=== PATIENT | female | born 1985 | race Two or more races ===

== ENCOUNTER 2024-03-03 21:47 | Emergency (ER) | payer MEDICAID, SELFPAY ==
[2024-03-03 21:48] VITALS: BMI 37.8
[2024-03-03 22:04] VITALS: BP 120/82; PULSE 89; RESP 18; TEMP 36.6; O2SAT 94
--- NOTE | 2024-03-03 22:22 | PD.EDRME ---
Rapid Medical Screening Exam RME Arrival date/time: 03/03/24 21:47 38-year-old female presents emergency department complaining of cough, difficulty breathing, headache, and bodyaches for 5 days. Chief Complaint: Flu Like Symptoms Time Seen by Provider: 03/03/24 22:07 Vital signs: Vital Signs Temperature 98 F 03/03/24 22:04 Pulse Rate 89 03/03/24 22:04 Respiratory Rate 18 03/03/24 22:04 Blood Pressure 120/82 03/03/24 22:04 Pulse Oximetry (%) 94 L 03/03/24 22:04 Oxygen Delivery Method Room Air 03/03/24 22:04 Vital signs reviewed by provider: Yes
--- NOTE | 2024-03-03 22:30 | PC.NURSE ---
RT called for breathing tx.
[2024-03-03 22:34] VITALS: PULSE 89
[2024-03-03] MEDS: SODIUM CHLORIDE RT SOL 0.9% 3 ML NEBU INH (22:34)
[2024-03-03] MEDS: IPRATROPIUM RT 0.5 MG/ 2.5 ML NEBU INH (22:34)
[2024-03-03] MEDS: ALBUTEROL RT 2.5 MG/0.5 ML NEBU 5 MG INH (22:34)
[2024-03-03 22:36] VITALS: PULSE 96; RESP 18; O2SAT 96
[2024-03-03] MEDS: predniSONE 20 MG TABLET 60 MG PO (23:08)
--- NOTE | 2024-03-04 00:05 | PD.EDURI ---
Upper Respiratory Inf. RME/HPI General Chief Complaint: Flu Like Symptoms Stated Complaint: cough, wheezing, chest pain Time Seen by Provider: 03/03/24 22:07 Source: patient Arrival date/time: 03/03/24 21:47 38-year-old female presents emergency department complaining of cough, difficulty breathing, headache, and bodyaches for 5 days. Patient denies any other associated symptoms. Mode of arrival: ambulatory Limitations: no limitations RME / HPI RME / HPI Narrative: 03/03/24 21:47 38-year-old female presents emergency department complaining of cough, difficulty breathing, headache, and bodyaches for 5 days. Related Data Previous Rx's ?Medication ?Instructions ?Recorded acetaminophen 650 mg 650 mg PO Q8H PRN fever or pain 11/11/18 tablet,extended release #30 tabs cyclobenzaprine 10 mg tablet 10 mg PO Q8H PRN muscle spasm / 11/11/18 pain #14 tabs meloxicam 15 mg tablet (Mobic) 15 mg PO QDAY #10 tabs 11/11/18 acetaminophen 500 mg capsule 500 mg PO Q6H PRN pain #30 caps 03/04/24 albuterol sulfate 90 mcg/actuation 2 puff inhalation Q6H PRN 03/04/24 aerosol inhaler (Ventolin HFA) shortness of breath or wheezing #6.7 grams benzonatate 100 mg capsule 100 mg PO BID #20 caps 03/04/24 Allergies Allergy/AdvReac Type Severity Reaction Status Date / Time codeine Allergy Unknown Verified 08/24/21 04:33 Review of Systems Review of Systems Systems Reviewed: All systems reviewed, normal except as documented Constitutional Constitutional: Reports body ache(s) and Reports headache(s) Eyes Eyes: Reports system reviewed and no additional complaints, except as documented and Denies change in vision ENT Ears, Nose, Mouth, and Throat: Reports headache(s) Cardiovascular Cardiovascular: Reports dyspnea Respiratory Respiratory: Reports cough and Reports dyspnea Gastrointestinal Gastrointestinal: Reports system reviewed and no additional complaints, except as documented, Denies abdominal pain, Denies nausea and Denies vomiting Musculoskeletal Musculoskeletal: Reports system reviewed and no additional complaints, except as documented, Denies abnormal gait and Denies arthralgias Integumentary/Breasts Skin/Breast: Reports system reviewed and no additional complaints, except as documented, Denies erythema, Denies rash and Denies wounds Neurologic Neurologic: Denies abnormal gait and Reports headache(s) Past Medical History Past Medical History NEUROLOGIC: Negative Neurological Disorders CARDIAC: Negative Cardiac Disorders or Congestive Heart Failure RESPIRATORY: Negative Chronic Obstructive Pulmonary Disease (COPD) GASTROINTESTINAL: Negative Gastrointestinal Disorders, Hepatitis or Colorectal Cancer GENITOURINARY: Negative Genitourinary Disorders, Renal Disease or Prostate Cancer REPRODUCTIVE: Negative Breast Cancer or Testicular Cancer MUSCULOSKELETAL: Negative Musculoskeletal Disorders or Bone Cancer ENDOCRINE: Negative Endocrine Disorders, Diabetes Mellitus Type 1 or Diabetes Mellitus Type 2 HEMATOLOGIC: Negative Blood Disorders OTHER HISTORY: Positive Chicken Pox (10 year old); Negative Autoimmune Disease, Blood Transfusions, MRSA, VRSA, Human Immunodeficiency Virus (HIV), Measles, Mumps, Rubella (Lao Measles), Pertussis, Clostridium Difficile, Breast Cancer, Cervical Cancer, Colorectal Cancer, Lung Cancer, Ovarian Cancer, Prostate Cancer or Testicular Cancer Family History FAMILY HISTORY: Positive Family Cardiac Disorders (father murmur -heart surgery) and Family Surgery (heart surgery); Negative Family Psychiatric Problems, Family Respiratory Disorders, Family Gastrointestinal Problems, Family Cancer or Family Anesthesia Reaction Surgical History SURGICAL: Negative Section Social History SMOKING STATUS: Former smoker SECOND HAND EXPOSURE: No ED Exam General Limitations: Present no limitations General appearance: Present alert and in no apparent distress Head Head exam: Present atraumatic Eye Eye exam: Present normal appearance, PERRL and EOMI ENT ENT exam: Present normal exam, normal oropharynx and mucous membranes moist Neck Neck exam: Present normal inspection, full ROM and trachea midline Chest Chest inspection: Present normal inspection and symmetric chest wall rise Respiratory Respiratory exam: Present normal lung sounds bilaterally and wheezes Cardiovascular Cardiovascular exam: Present regular rate, normal rhythm and normal heart sounds Abdominal Exam Abdominal exam: Present soft and normal bowel sounds Extremities Exam Extremities exam: Present normal inspection and full ROM Back Exam Back exam: Present normal inspection and full ROM Neurological Exam Neurological exam: Present alert, oriented X3 and CN II-XII intact Psychiatric Psychiatric exam: Present normal affect and normal mood Skin Skin exam: Present warm, dry, intact and normal color Course Quality Measures none Orders Category Date Time Status Bedside COVID-19 Antigen Test NOW Care 03/03/24 22:21 Completed Bedside Influenza A&B Antigen Test NOW Care 03/03/24 22:22 Completed ALBUTEROL RT 0.5ml [Proventil Rt 0.5ml] Med 03/03/24 22:21 Discontinued 5 mg INH X1 ONE Ipratropium Jackson Rt Kassie [Atrovent Rt Kassie] Med 03/03/24 22:21 Discontinued 0.5 mg INH X1 ONE Sodium Chloride Rt Kassie 0.9% [NS Rt Kassie 0.9%] Med 03/03/24 22:21 Discontinued 3 ml INH PRN PRN predniSONE Med 03/03/24 22:21 Discontinued 60 mg PO X1 ONE Vital Signs Vital signs: Vital Signs Temperature 98 F 03/03/24 22:04 Pulse Rate 89 03/03/24 22:04 Respiratory Rate 18 03/03/24 22:04 Blood Pressure 120/82 03/03/24 22:04 Pulse Oximetry (%) 94 L 03/03/24 22:04 Oxygen Delivery Method Room Air 03/03/24 22:04 94% room air with normal limits Upper Respiratory Infection MDM Narrative MDM Narrative:: 38-year-old female presents emergency department complaining of cough, difficulty breathing, headache, and bodyaches for 5 days. Patient denies any other associated symptoms. Left upper lobe expiratory wheeze on auscultation that significantly improved after steroids and breathing treatment. Patient reported significant improvement after breathing treatment and steroids speaking in full sentences and does not appear to be any acute respiratory distress. Influenza positive. Patient appears nontoxic and is hemodynamic stable. Patient data External records reviewed:: [facility] previous records Clinical information provided by:: patient Social determinants that could affect healthcare access:: none Patient has the following chronic illnesses:: See chart How is presenting disease/condition affected by chronic disease/condition?: uneffected by Evaluation data The following diagnostics were reviewed and interpreted by me:: lab results Lab and/or radiology exams considered but not ordered:: Ordered Interpretation Summary: Interpreted by me Medications / Prescriptions Medications or Prescriptions considered but not ordered:: Ordered Medication administrations:: Medication Administration History Discontinued Medications Albuterol (Albuterol Rt 2.5 Mg/0.5 Ml Nebu) 5 mg INH X1 ONE Stop: 03/03/24 22:22 Last Admin: 03/03/24 22:34 Dose: 5 mg Documented By: FABRICE Ipratropium Jackson (Ipratropium Rt 0.5 Mg/ 2.5 Ml Nebu) 0.5 mg INH X1 ONE Stop: 03/03/24 22:22 Last Admin: 03/03/24 22:34 Dose: 0.5 mg Documented By: FABRICE Prednisone (Prednisone 20 Mg Tablet) 60 mg PO X1 ONE Stop: 03/03/24 22:22 Last Admin: 03/03/24 23:08 Dose: 60 mg Documented By: JOSSELIN Sodium Chloride (Sodium Chloride Rt Kassie 0.9% 3 Ml Nebu) 3 ml INH PRN PRN PRN Reason: SOLN Stop: 04/02/24 22:20 Last Admin: 03/03/24 22:34 Dose: 3 ml Documented By: FABRICE Given Consultations Consultation(s) initiated? (list below): No Diagnosis Upper Respiratory Differential Diagnosis: upper respiratory infection, otitis media, sinusitis, viral infection, bronchitis, influenza and pharyngitis Most likely diagnosis given after review of the tests above:: Influenza Admission Indicated Admission indicated?: not indicated Admission Request Was there a request for admission?: No Disposition Plan Disposition Plan: Discharge Discharge Attestation Discharge Attestation: The patient and all family members were given an opportunity to ask questions and understood the discharge instructions. Discharge instructions specifically effects, indications for sooner follow up or return to the emergency department, and the expected course of current diagnosis. Patient condition: Stable Discharge Plan Plan Patient Disposition: HOME (Self Care) Disposition Comment: Stable Prescriptions/Referrals Prescriptions/Med Rec: New albuterol sulfate [Ventolin HFA] 90 mcg/actuation HFA aerosol inhaler 2 puff inhalation Q6H PRN (Reason: shortness of breath or wheezing) Qty: 6.7 0RF acetaminophen 500 mg capsule 500 mg PO Q6H PRN (Reason: pain) Qty: 30 0RF benzonatate 100 mg capsule 100 mg PO BID Qty: 20 0RF No Action acetaminophen 650 mg tablet extended release 650 mg PO Q8H PRN (Reason: fever or pain) Qty: 30 0RF Rx Instructions: swallow whole; do not crush, chew, break, dissolve, cut, or open cyclobenzaprine 10 mg tablet 10 mg PO Q8H PRN (Reason: muscle spasm / pain) Qty: 14 0RF meloxicam [Mobic] 15 mg tablet 15 mg PO QDAY Qty: 10 0RF Problem List Clinical Impression: Influenza Patient/Caregiver Discharge Instructions Additional Instructions: Drink plenty of fluids and get plenty of rest. Take Tylenol or ibuprofen as needed for fever or pain. Use albuterol inhaler as needed for any shortness of breath or wheezing. Follow-up with primary care provider in 2 to 3 days. Return to emergency department for any worsening symptoms or as needed. Print Language: Chinese Stand Alone Forms: Brittany Award Info., Work/School Release, Patient Portal Info Letter PA/[employer]PER[employer] Supervising Physician PA/[employer] SUPER[employer] Supervising Physician: Dr. Jennings
== END 2024-03-04 01:15 | disposition home or self-care (01) ==
LOC: SERX 03-04 00:35
PROVIDERS: Emergency Provider Emergency Medicine
DX: J11.1 Influenza due to unidentified influenza virus with other respiratory manifestations (principal)
CPT/HCPCS: 87400; 87811; 94640; 99283; J7512

== ENCOUNTER 2025-01-26 08:17 | Emergency (ER) | payer MEDICAID, SELFPAY ==
[2025-01-26 08:30] VITALS: BP 127/66; PULSE 65; RESP 19; TEMP 36.8; O2SAT 97
[2025-01-26 08:33] VITALS: BMI 37.8
--- NOTE | 2025-01-26 08:55 | EKG_ITS ---
[facility] Test Date: 2025-01-26 Pat Name: ADOLFO MORRIS Department: Room: - Gender: Female Religion Instructor: : 1985 Requested By: Zaheer Pate Order Number: [id number] Reading MD: Zaheer Pate Measurements Intervals [place] Rate: 56 P: 61 WI: 178 QRS: 28 QRSD: 102 T: 9 QT: 420 QTc: 407 Interpretive Statements SINUS BRADYCARDIA WITH SINUS ARRHYTHMIA POSSIBLE ANTERIOR MYOCARDIAL INFARCTION , OF INDETERMINATE AGE [30 ms Q WAVE IN V3/V4, OR R < 0.2 mV IN V4] No previous ECG available for comparison /store/S0/[id number].pdf
--- NOTE | 2025-01-26 08:56 | XR_ITS ---
EXAMINATION: PA chest single view TECHNIQUE: Upright PA chest single view Date and time: January 26, 2025, 0919 hours, comparison March 07, 2009 INDICATIONS: Cough and chest pain beginning 3 days ago. FINDINGS: Mild enlargement left ventricle Mild vascular congestion. No lobar pneumonia or pulmonary edema Intact osseous structures IMPRESSION: Mild enlargement left ventricle Mild vascular congestion
--- NOTE | 2025-01-26 09:00 | EDNOTE_ITS ---
ED SOB =RME/HPI General Chief Complaint: Shortness of Breath/Dyspnea Stated Complaint: DIFFICUTLY BREATHING, WHEEZING X 3 DAYS Time Seen by Provider: 01/26/25 08:52 Arrival date/time: 01/26/25 08:17 RME / HPI RME / HPI Narrative: 39-year-old female with a past medical history of asthma never admitted or intubated presents to the ER complaining of shortness of breath and chest tightness associated with congestion, cough, shortness of breath which feels similar to her prior asthma attacks for the past 3 days. Patient denies any chest pain at rest, family history of early cardiac disease, recent travel, surgeries, immobilizations, history of leg swelling or blood clots, smoking. Related Data Previous Rx's ?Medication ?Instructions ?Recorded acetaminophen 650 mg 650 mg PO Q8H PRN fever or p ain 11/11/18 tablet,extended release #30 tabs cyclobenzaprine 10 mg tablet 10 mg PO Q8H PRN muscle s pasm / 11/11/18 pain #14 tabs meloxicam 15 mg tablet (Mobic) 15 mg PO QDAY #10 tabs 11/11/18 acetaminophen 500 mg capsule 500 mg PO Q6H PRN pain #3 0 caps 03/04/24 albuterol sulfate 90 mcg/actuation 2 puff inhalation Q 6H PRN 03/04/24 aerosol inhaler (Ventolin HFA) shortness of breath or wheezing #6.7 grams benzonatate 100 mg capsule 100 mg PO BID #20 caps 02/18 07/12 albuterol sulfate 90 mcg/actuation 2 inh inhalation Q6 H PRN shortness 01/26/25 breath activated powder inhaler of breath #1 ea prednisone 20 mg tablet See Taper PO QDAY #10 tabs 1 03/29/24 Allergies Allergy/AdvReac Type Severity Reaction Status Date / Time codeine Allergy Intermediate Vomiting Verified 01/26/25 08:21 ED Exam Narrative Physical exam: Constitutional: Patient alert and oriented. Well appearing. No acute distress. Not toxic appearing. Head: Normocephalic, atraumatic. Eyes: Periorbital regions bilaterally normal to inspection. Conjunctiva clear bilaterally. Sclera anicteric bilaterally. Pupils equal, round, reactive to light bilaterally. Extraocular movements intact bilaterally. Ears: External ears normal to inspection bilaterally. No mastoid tenderness bilaterally. EAC without edema or exudate bilaterally. TMs without erythema or bulging. Mouth/Throat: Mucous membranes moist. No stridor or muffled voice. Uvula midline. Rise and fall of soft palate normal. No tonsillar edema or exudate. No peritonsillar fullness. No trismus. Handling secretions without difficulty. Airway widely patent. Neck: Supple. Trachea midline. No JVD. No nuchal rigidity. No midline tenderness or step-offs. Normal range of motion. Respiratory: Normal effort. No accessory muscle use or respiratory distress. Scant expiratory wheezing bilaterally. Cardiovascular: RRR. Normal S1/S2. No murmurs or rubs. Radial pulses intact bilaterally. Abdomen: Soft. Non-distended. Non-tender throughout. No pulsatile mass. No guarding or rebound. Negative Loving?s sign. Negative McBurney?s point tenderness. Negative Rovsing?s. Back: No midline tenderness or step-offs. No CVA tenderness to palpation bilaterally. Upper Extremities: No gross deformities. Lower Extremities: No gross deformities. No edema or calf tenderness. Neuro: Speech normal. No gross motor or sensory deficits to upper or lower extremities bilaterally. GCS 15. CN II?XII grossly intact. Skin: Warm, dry, normal color. Psych: Normal affect. Cooperative. Normal insight. Course Quality Measures none Orders Category Date Time Status Bedside COVID-19 Antigen Test NOW Care 01/26/25 08:57 Active Bedside Influenza A&B Antigen Test NOW Care 01/26/25 08:57 Completed Continuous Pulse Oximetry NOW Care 01/26/25 09:13 Active EKG (ED ONLY) *Do not use* NOW Care 01/26/25 08:57 Completed EKG (ED Only) Stat Exams 01/26/25 08:55 Draft XR chest 1V Stat Exams 01/26/25 08:56 Completed B-Type Natriuretic Peptide Stat Lab 01/26/25 09:42 Completed CBC Stat Lab 01/26/25 09:42 Completed Comprehensive Metabolic Panel Stat Lab 01/26/25 09:42 Completed HCG Qualitative,Urine Stat Lab 01/26/25 08:58 Ordered HCG,Qualitative Serum Stat Lab 01/26/25 09:42 Completed RSV [Respiratory Syncytial Virus Ag] Stat Lab 01/26/25 08:57 Ordered Troponin I Stat Lab 01/26/25 09:42 Completed ALBUTEROL RT 0.5ml [Proventil Rt 0.5ml] Med 01/26/25 08:55 Discontinued 5 mg INH X1 ONE Acetaminophen Tab [Tylenol Tab] Med 01/26/25 08:55 Discontinued 650 mg PO X1 ONE Sodium Chloride Rt Kassie 0.9% [NS Rt Kassie 0.9%] Med 01/26/25 08:55 Active 3 ml INH PRN PRN Sodium Chloride Rt Kassie 0.9% [NS Rt Kassie 0.9%] Med 01/26/25 08:55 Active 3 ml INH PRN PRN Sodium Chloride Rt Kassie 0.9% [NS Rt Kassie 0.9%] Med 01/26/25 08:55 Active 3 ml INH PRN PRN predniSONE Med 01/26/25 08:55 Discontinued 60 mg PO X1 ONE Vital Signs Vital signs: Vital Signs Temperature 98.2 F 01/26/25 08:30 Pulse Rate 65 01/26/25 08:30 Respiratory Rate 19 01/26/25 08:30 Blood Pressure 127/66 01/26/25 08:30 Pulse Oximetry (%) 97 01/26/25 08:30 Oxygen Delivery Method Room Air 01/26/25 08:30 Shortness of Breath / Dyspnea MDM Narrative MDM Narrative:: MDM Most likely diagnosis is acute bronchospasm versus asthma exacerbation vs undiagnosed COPD exacerbation. The patient has evidence of an acute bronchospastic process with clinical improvement after treatment (bronchodilator and/or steroids). The patient was reassessed after therapy and noted to have objective improvement on exam. The patient has access to appropriate ongoing therapy after discharge. Antibiotics were considered but are not indicated, as there is no increased sputum production or evidence of superimposed bacterial infection. Other serious causes of shortness of breath were considered: ACS considered but unlikely given absence of chest pain and no concerning history or risk features at this time. CHF doubted given lack of edema, JVD, or signs of volume overload. PE considered but unlikely given low Wells score and absence of pleuritic chest pain. Pneumonia doubted given no focal findings on exam. Admission was considered, but based on history, exam, and clinical improvement after therapy, outpatient management is appropriate. The patient was counseled that if symptoms worsen?including increased shortness of breath, chest pain, or syncope?they should return immediately for reassessment. Close follow-up with PMD in 1-2 days is recommended. At the time of reassessment prior to discharge, the patient remains alert and oriented ?3 with GCS 15. Vitals are normal, pain is controlled, and the patient is tolerating oral intake without nausea or vomiting. The patient is agreeable to discharge and verbalizes understanding of the diagnosis, studies, treatment plan, medications (including side effects/precautions), and strict ER return precautions as discussed in the ED. All concerns were addressed, and the patient is comfortable with the plan. Patient data External records reviewed:: [facility] previous records Clinical information provided by:: patient Social determinants that could affect healthcare access:: none Patient has the following chronic illnesses:: As noted How is presenting disease/condition affected by chronic disease/condition?: no chronic disease Evaluation data The following diagnostics were reviewed and interpreted by me:: lab results, radiology exam(s) and EKG tracing(s) Lab and/or radiology exams considered but not ordered:: Additional Labs and radiology considered, but not ordered as they were not c linically indicated at this time. Interpretation Summary: EKG without acute ischemia, high grade AV block, however patient is sinus bradycardia 56 with sinus arrhythmia and nonspecific ST abnormalities. T wave inversion noted in lead III along with a Q wave. No ST elevation CBC without severe leukocytosis, anemia, or thrombocytopenia CMP without severe hyperbilirubinemia, acute renal failure or severe electrolyte derangement however glucose is minimally elevated 125 and AST and ALT are both minimally elevated at 48 and 78 respectively with a normal alk phos Troponin and BNP are negative Chest x-ray w with mild enlargement of the ventricle and mild vascular congestion however no effusion Medications / Prescriptions Medications or Prescriptions considered but not ordered:: I ordered medications based on the patient?s clinical needs and assessment, as documented in the chart. For medications not prescribed, they were not indicated for the patient's current condition, and I determined they were unnecessary at this time to avoid potential risks or complications. Medication administrations:: Medication Administration History Sodium Chloride (Sodium Chloride Rt Kassie 0.9% 3 Ml Nebu) 3 ml INH PRN PRN PRN Reason: SOLN Stop: 02/25/25 08:54 Last Admin: 01/26/25 09:30 Dose: 3 ml Documented By: JOHNNY Sodium Chloride (Sodium Chloride Rt Kassie 0.9% 3 Ml Nebu) 3 ml INH PRN PRN PRN Reason: SOLN Stop: 02/25/25 08:54 Sodium Chloride (Sodium Chloride Rt Kassie 0.9% 3 Ml Nebu) 3 ml INH PRN PRN PRN Reason: SOLN Stop: 02/25/25 08:54 Discontinued Medications Acetaminophen (Acetaminophen 325 Mg Tablet) 650 mg PO X1 ONE Stop: 01/26/25 08:56 Last Admin: 01/26/25 09:27 Dose: 650 mg Documented By: Albuterol (Albuterol Rt 2.5 Mg/0.5 Ml Nebu) 5 mg INH X1 ONE Stop: 01/26/25 08:56 Last Admin: 01/26/25 09:30 Dose: 5 mg Documented By: JOHNNY Prednisone (Prednisone 20 Mg Tablet) 60 mg PO X1 ONE Stop: 01/26/25 08:56 Last Admin: 01/26/25 09:27 Dose: 60 mg Documented By: As noted Consultations Consultation(s) initiated? (list below): No Diagnosis Shortness of Breath Differential Diagnosis: congestive heart failure, community acquired pneumonia and asthma with exacerbation Most likely diagnosis given after review of the tests above:: Acute bronchitis Admission Indicated Admission indicated?: not indicated Admission Request Was there a request for admission?: No Disposition Plan Disposition Plan: Discharge Discharge Attestation Discharge Attestation: The patient and all family members were given an opportunity to ask questions and understood the discharge instructions. Discharge instructions specifically effects, indications for sooner follow up or return to the emergency department, and the expected course of current diagnosis. Patient condition: Stable Discharge Plan Plan Patient Disposition: HOME (Self Care) Patient condition on transfer: Stable Prescriptions/Referrals Prescriptions/Med Rec: New prednisone 20 mg tablet See Taper PO QDAY Qty: 10 0RF Taper: Prednisone Taper 20 mg DAILY for 2 Days and 0 Hour 10 mg DAILY for 2 Days and 0 Hour 5 mg DAILY for 7 Days and 0 Hour albuterol sulfate 90 mcg/actuation aerosol powdr breath activated 2 inh inhalation Q6H PRN (Reason: shortness of breath) Qty: 1 0RF No Action acetaminophen 650 mg tablet extended release 650 mg PO Q8H PRN (Reason: fever or pain) Qty: 30 0RF Rx Instructions: swallow whole; do not crush, chew, break, dissolve, cut, or open cyclobenzaprine 10 mg tablet 10 mg PO Q8H PRN (Reason: muscle spasm / pain) Qty: 14 0RF meloxicam [Mobic] 15 mg tablet 15 mg PO QDAY Qty: 10 0RF albuterol sulfate [Ventolin HFA] 90 mcg/actuation HFA aerosol inhaler 2 puff inhalation Q6H PRN (Reason: shortness of breath or wheezing) Qty: 6.7 0RF acetaminophen 500 mg capsule 500 mg PO Q6H PRN (Reason: pain) Qty: 30 0RF benzonatate 100 mg capsule 100 mg PO BID Qty: 20 0RF Referrals: Darlene Montoya PA-C [Primary Care Provider] - In 1 week Problem List Clinical Impression: Acute bronchitis Patient/Caregiver Discharge Instructions Additional Instructions: Your liver tests are elevated you will need repeat testing with your primary doctor. Avoid alcohol. Your chest x-rays showed that your heart is minimally enlarged please follow-up with your doctor for this as well. Follow up with your primary medical doctor within 24 hours. Return to the Emergency Room immediately for any new, worsening, continuing symptoms or any concerns at all. Return to the Emergency Room within 24 hours if you are unable to follow up with your primary medical doctor within 24 hours. Print Language: Hebrew Stand Alone Forms: Brittany Award Info., Patient Portal Info Letter HENRI/KENNEDY Supervising Physician HENRI/KENNEDY Supervising Physician: Dr. Henao
[2025-01-26] MEDS: ACETAMINOPHEN 325 MG TABLET 650 MG PO (09:27)
[2025-01-26 09:30] VITALS: PULSE 76
[2025-01-26] MEDS: SODIUM CHLORIDE RT SOL 0.9% 3 ML NEBU INH (09:30)
[2025-01-26] MEDS: ALBUTEROL RT 2.5 MG/0.5 ML NEBU 5 MG INH (09:30)
[2025-01-26 09:33] VITALS: PULSE 76; RESP 20; O2SAT 98
[2025-01-26 10:04] LABS: Basophils # (Auto) 0.0 Thou/mm3 (0.0-0.2); Basophils % (Auto) 0 % (0-2.5); Eosinophils # (Auto) 0.1 Thou/mm3 (0.0-0.5); Eosinophils % (Auto) 2 % (0-10); Hematocrit 39.2 % (36.0-46.0); Hemoglobin 13.3 g/dL (12.0-16.0); Immature Granulocytes Auto 0.02 Thou/mm3 (0.00-0.00); Lymphocytes # (Auto) 2.5 Thou/mm3 (1.0-4.8); Lymphocytes % (Auto) 35 % (10-50); Mean Corpuscular HGB Conc 33.9 g/dl (31.0-37.0); Mean Corpuscular Hemoglobin 31.4 pg (25.0-35.0); Mean Corpuscular Volume 93 fL (80-100); Monocytes # (Auto) 0.6 Thou/mm3 (0.0-0.8); Monocytes % (Auto) 8 % (0-12); Neutrophils # (Auto) 4.0 Thou/mm3 (1.8-7.7); Neutrophils % (Auto) 55 % (37-80); Nucleated Red Blood Cell # 0.00 Thou/mm3 (0.00-0.00); Nucleated Red Blood Cell % 0 /100 WBC (0); Platelet Count 184 Thou/mm3 (140-440); RDW Standard Deviation 43.9 fL (36.4-46.3); Red Blood Count 4.24 Miln/mm3 (4.00-5.20); White Blood Count 7.2 Thou/mm3 (3.6-11.0)
[2025-01-26 10:18] LABS: B-Type Natriuretic Peptide < 20 pg/mL (0-100)
[2025-01-26 10:19] LABS: Alanine Aminotransferase 78 U/L (10-49); Albumin, Serum 4.3 gm/dL (3.5-5.0); Albumin/Globulin Ratio 1.3 (1.2-2.2); Alkaline Phosphatase 80 U/L (46-116); Anion Gap 8 (7-16); Aspartate Amino Transferase 48 U/L (0-34); BUN/Creatinine Ratio 13 Ratio (12-20); Bilirubin,Total 0.7 mg/dL (0.3-1.2); Blood Urea Nitrogen 9 mg/dL (9-23); Calcium 9.3 mg/dL (8.3-10.6); Calcium (Corrected) 9.3 mg/dL (8.5-10.1); Carbon Dioxide 27.7 mMol/L (20.0-31.0); Chloride 106 mMol/L (98-107); Creatinine (Component) 0.7 mg/dL (0.6-1.3); Estimated Creatinine Clearance 126.3 mL/min (>60); Globulin 3.3 gm/dL (2.3-3.5); Glucose 125 mg/dL (74-106); Osmolality,Calculated 282 (275-295); Potassium 3.9 mMol/L (3.4-5.1); Sodium 142 mMol/L (136-145); Total Protein 7.6 gm/dL (5.7-8.2); Troponin I < 0.002 ng/mL (0.0-0.045); eGFR > 60 See Note
[2025-01-26 10:33] LABS: HCG,Qualitative Serum Negative
== END 2025-01-26 11:30 | disposition home or self-care (01) ==
PROVIDERS: Emergency Provider Physician Assistant; PCP Physician Assistant
DX: J20.9 Acute bronchitis, unspecified (principal); I49.8 Other specified cardiac arrhythmias
CPT/HCPCS: 36415; 71045; 80053; 81025; 83880; 84484; 84703; 85025; 87502; 87634; 87635; 93005; 94640; 99283; J7512; J7602; A9270; J7611

== ENCOUNTER 2025-02-13 04:09 | Emergency (ER) | payer MEDICAID, SELFPAY ==
[2025-02-13 04:10] VITALS: BMI 38.9
[2025-02-13 04:18] VITALS: BP 169/95; PULSE 83; RESP 19; TEMP 36.7; O2SAT 98
--- NOTE | 2025-02-13 04:24 | XR_ITS ---
Examination: CT abdomen and pelvis without contrast. Coronal 3-D reconstructions. Sagittal 2-D reconstructions. Date and time of exam: February 13, 2025, 0536 hours INDICATIONS: Onset left flank pain today CTDI: vol (mGy): 14.31 DLP: (mGycm): 835 Technique: Axial images of the abdomen have been obtained, 3 mm slice thickness Intravenous contrast material has not been administered. Low dose protocols were performed. One or more of the following dose reduction techniques were used; automated exposure control, adjustment of the mA and/or KV according to patient size, use of iterative reconstruction technique. Findings: Diffuse fatty infiltration throughout the liver Hepatomegaly, 24 cm Cholelithiasis No pancreatic or adrenal mass 3 mm nonobstructing left renal calculus Minimal right hydronephrosis minimal right perinephric stranding, no ureteral calculi Aorta normal size No bowel obstruction Normal appendix 3 cm left adnexal cyst No uterine mass Contracted urinary bladder IMPRESSION:: 3 mm nonobstructing left renal calculus Suspicious for right urinary tract infection
--- NOTE | 2025-02-13 04:25 | PD.EDRME ---
Rapid Medical Screening Exam RME Arrival date/time: 02/13/25 04:09 39F with no significant PMH presents to ED with several hours of sudden L flank pain and N/V. Patient denies dysuria. Chief Complaint: Abdominal Pain Vital signs: Vital Signs Temperature 98.0 F 02/13/25 04:18 Pulse Rate 83 02/13/25 04:18 Respiratory Rate 19 02/13/25 04:18 Blood Pressure 169/95 H 02/13/25 04:18 Pulse Oximetry (%) 98 02/13/25 04:18 Oxygen Delivery Method Room Air 02/13/25 04:18 Exam: Mild L CVA tenderness. Appears to be in pain. No ab tenderness. Clinical Impression: kidney stone vs UTI/pyelo vs GERD vs gastritis vs diverticulitis
[2025-02-13] MEDS: ONDANSETRON ODT 4 MG TABRAP PO (04:37)
[2025-02-13 04:38] VITALS: TEMP 36.6
[2025-02-13] MEDS: KETOROLAC INJ 60 MG/2 ML VIAL IM (04:38)
[2025-02-13 05:20] LABS: Collection Type, Urine Clean Catch
[2025-02-13 05:23] LABS: Basophils # (Auto) 0.0 Thou/mm3 (0.0-0.2); Basophils % (Auto) 0 % (0-2.5); Eosinophils # (Auto) 0.1 Thou/mm3 (0.0-0.5); Eosinophils % (Auto) 1 % (0-10); Hematocrit 39.5 % (36.0-46.0); Hemoglobin 13.0 g/dL (12.0-16.0); Immature Granulocytes Auto 0.04 Thou/mm3 (0.00-0.00); Lymphocytes # (Auto) 2.5 Thou/mm3 (1.0-4.8); Lymphocytes % (Auto) 27 % (10-50); Mean Corpuscular HGB Conc 32.9 g/dl (31.0-37.0); Mean Corpuscular Hemoglobin 31.1 pg (25.0-35.0); Mean Corpuscular Volume 95 fL (80-100); Monocytes # (Auto) 0.7 Thou/mm3 (0.0-0.8); Monocytes % (Auto) 8 % (0-12); Neutrophils # (Auto) 5.9 Thou/mm3 (1.8-7.7); Neutrophils % (Auto) 64 % (37-80); Nucleated Red Blood Cell # 0.00 Thou/mm3 (0.00-0.00); Nucleated Red Blood Cell % 0 /100 WBC (0); Platelet Count 242 Thou/mm3 (140-440); RDW Standard Deviation 43.8 fL (36.4-46.3); Red Blood Count 4.18 Miln/mm3 (4.00-5.20); White Blood Count 9.3 Thou/mm3 (3.6-11.0)
[2025-02-13 05:24] LABS: HCG Qualitative,Urine Negative
[2025-02-13 05:28] LABS: Bilirubin,Urine Negative (Negative); Blood,Urine Negative (Negative); Budding Yeast,Urine Present; Clarity,Urine Turbid (Clear/Hazy); Color,Urine Lt-Yellow (Lt Yel-Yel); Culture Indicated,Urine Not Indicated; Glucose, Urine Negative (Negative); Ketones,Urine Negative (Negative); Leukocyte Esterase,Urine Positive (Negative); Nitrite,Urine Negative (Negative); PH,Urine 6.0 (5.0-7.0); Protein,Urine Negative (Neg - Trace); RBC,Urine 20 /hpf (0-3); Specific Gravity,Urine 1.021 (1.001-1.035); Squamous Epithelial Cell,Urine 16 /hpf (0-5); Urobilinogen,Urine Negative mg/dL (0.0-1.0); WBC,Urine 3 /hpf (0-5)
[2025-02-13 05:43] LABS: Alanine Aminotransferase 52 U/L (10-49); Albumin, Serum 4.4 gm/dL (3.5-5.0); Albumin/Globulin Ratio 1.3 (1.2-2.2); Alkaline Phosphatase 84 U/L (46-116); Anion Gap 9 (7-16); Aspartate Amino Transferase 34 U/L (0-34); BUN/Creatinine Ratio 18 Ratio (12-20); Bilirubin,Total 0.5 mg/dL (0.3-1.2); Blood Urea Nitrogen 14 mg/dL (9-23); Calcium 9.1 mg/dL (8.3-10.6); Calcium (Corrected) 9.1 mg/dL (8.5-10.1); Carbon Dioxide 26.0 mMol/L (20.0-31.0); Chloride 106 mMol/L (98-107); Creatinine (Component) 0.8 mg/dL (0.6-1.3); Estimated Creatinine Clearance 108.5 mL/min (>60); Globulin 3.5 gm/dL (2.3-3.5); Glucose 129 mg/dL (74-106); Lipase 30 U/L (12-53); Osmolality,Calculated 283 (275-295); Potassium 3.1 mMol/L (3.4-5.1); Sodium 141 mMol/L (136-145); Total Protein 7.9 gm/dL (5.7-8.2); eGFR > 60 See Note
--- NOTE | 2025-02-13 06:04 | PRELIM_ITS ---
CT scan of the abdomen and pelvis without intravenous contrast (axial sections with sagittal and coronal reformats) February 13, 2025 0536 hours Clinical History: Left flank pain Comparison: No prior study is available for comparison. Findings: The lung bases are clear. Fatty liver infiltration. Liver is enlarged, 25 cm long. Cholelithiasis. The adrenal glands, pancreas are normal. Nonobstructing left renal calculus. No right renal calculi. Normal ureters. No hydronephrosis bilaterally. The appendix is normal, best seen on image 161. Bowel caliber is normal. The abdominal wall is unremarkable. The urinary bladder is decompressed, limiting evaluation. 3.5 cm left adnexal cyst/follicle. No acute osseous process. No free intraperitoneal air or fluid. Impression: Fatty liver and hepatomegaly. Cholelithiasis. Nonobstructing left renal calculus. No hydronephrosis or ureteral calculus. 3.5 cm left adnexal cyst /follicle. Report Electronically Signed By: Ryne Mcmahon 02/13/2025 6:03:37 AM [EST]
--- NOTE | 2025-02-13 07:54 | EDNOTE_ITS ---
ED Abdominal Pain RME/HPI General Chief Complaint: Abdominal Pain Stated complaint: LEFT FLANK PAIN Time seen by provider: 02/13/25 04:26 Arrival date/time: 02/13/25 04:09 This is a 39-year-old female that comes into the emergency room with complaints of generalized abdominal pain and left flank pain that started prior to arrival. Patient states she also complained of nausea and vomiting. Patient denies fever or chills. Patient also denies diarrhea. Patient denies any other complaints. Patient denies urinary symptoms RME / HPI RME / HPI narrative: 02/13/25 04:09 39F with no significant PMH presents to ED with several hours of sudden L flank pain and N/V. Patient denies dysuria. Exam: Mild L CVA tenderness. Appears to be in pain. No ab tenderness. Impression: kidney stone vs UTI/pyelo vs GERD vs gastritis vs diverticulitis Related Data Previous Rx's ?Medication ?Instructions ?Recorded acetaminophen 650 mg 650 mg PO Q8H PRN fever or p ain 11/11/18 tablet,extended release #30 tabs cyclobenzaprine 10 mg tablet 10 mg PO Q8H PRN muscle s pasm / 11/11/18 pain #14 tabs meloxicam 15 mg tablet (Mobic) 15 mg PO QDAY #10 tabs 11/11/18 acetaminophen 500 mg capsule 500 mg PO Q6H PRN pain #3 0 caps 03/04/24 albuterol sulfate 90 mcg/actuation 2 puff inhalation Q 6H PRN 03/04/24 aerosol inhaler (Ventolin HFA) shortness of breath or wheezing #6.7 grams benzonatate 100 mg capsule 100 mg PO BID #20 caps 02/18 07/12 albuterol sulfate 90 mcg/actuation 2 inh inhalation Q6 H PRN shortness 01/26/25 breath activated powder inhaler of breath #1 ea prednisone 20 mg tablet See Taper PO QDAY #10 tabs 1 03/29/24 ibuprofen 800 mg tablet 800 mg PO Q6H PRN pain #20 t abs 02/13/25 Allergies Allergy/AdvReac Type Severity Reaction Status Date / Time codeine Allergy Intermediate Vomiting Verified 01/26/25 08:21 Review of Systems Review of Systems Systems Reviewed: All systems reviewed, normal except as documented Past Medical History Past Medical History NEUROLOGIC: Negative Neurological Disorders CARDIAC: Negative Cardiac Disorders or Congestive Heart Failure RESPIRATORY: Negative Chronic Obstructive Pulmonary Disease (COPD) GASTROINTESTINAL: Negative Gastrointestinal Disorders, Hepatitis or Colorectal Cancer GENITOURINARY: Negative Genitourinary Disorders, Renal Disease or Prostate Cancer REPRODUCTIVE: Negative Breast Cancer or Testicular Cancer MUSCULOSKELETAL: Negative Musculoskeletal Disorders or Bone Cancer ENDOCRINE: Negative Endocrine Disorders, Diabetes Mellitus Type 1 or Diabetes Mellitus Type 2 HEMATOLOGIC: Negative Blood Disorders OTHER HISTORY: Positive Chicken Pox (10 year old); Negative Autoimmune Disease, Blood Transfusions, MRSA, VRSA, Human Immunodeficiency Virus (HIV), Measles, Mumps, Rubella ([place] Measles), Pertussis, Clostridium Difficile, Breast Cancer, Cervical Cancer, Colorectal Cancer, Lung Cancer, Ovarian Cancer, Prostate Cancer or Testicular Cancer Family History FAMILY HISTORY: Positive Family Cardiac Disorders (father murmur -heart surgery) and Family Surgery (heart surgery); Negative Family Psychiatric Problems, Family Respiratory Disorders, Family Gastrointestinal Problems, Family Cancer or Family Anesthesia Reaction Surgical History SURGICAL: Negative Section Social History SMOKING STATUS: Former smoker SECOND HAND EXPOSURE: No ED Exam Narrative Physical exam: VITAL SIGNS: Reviewed. GENERAL APPEARANCE: Alert and interactive, follows commands, no acute distress HEAD AND FACE: Non-traumatic. ENT: PERRL, conjuctiva pink and clear, eyelid no trauma, Mucous membrane moist. NECK: Supple, nontender, no nuchal rigidity. CHEST: No tenderness, no crepitus, no paradoxical movement, no retractions. LUNGS: breathing even and unlabored HEART: Regular rate, cap refill less than 2 seconds ABDOMEN: Soft, nondistended, no pain to palpation NEUROLOGICAL: Gross motor function intact sensory function intact, Appropriate for age. MUSCULOSKELETAL: low back nontender, full range of motion. no midline tenderness, no meningismus, no step offs EXTREMITIES: No redness no swelling no skin breakdown on bilateral foot and leg. Distal neurovascular status intact bilateral foot SKIN: Color pink, dry, no rash Course Quality Measures none Orders Category Date Time Status CT abdomen pelvis wo con Stat Exams 02/13/25 04:24 Completed CBC Stat Lab 02/13/25 04:25 Completed CMP [Comprehensive Metabolic Panel] Stat Lab 02/13/25 04:25 Completed HCG Qualitative,Urine Stat Lab 02/13/25 04:35 Completed Lipase Stat Lab 02/13/25 04:25 Completed Urinalysis, C/S if Indicated Stat Lab 02/13/25 04:35 Completed HYDROcodone*/APAP 5/325 [[place] 5/325] Med 02/13/25 08:02 Discontinued 2 tab PO X1 ONE Ketorolac Inj [Toradol Inj] Med 02/13/25 04:24 Discontinued 60 mg IM X1 ONE Metoclopramide [Reglan] Med 02/13/25 08:02 Discontinued 10 mg PO X1 ONE Ondansetron Odt [Zofran Odt] Med 02/13/25 04:24 Discontinued 4 mg PO X1 ONE cefTRIAXone [Rocephin] 1,000 mg Med 02/13/25 08:02 Discontinued Lidocaine 1% Pf Vial 5ml [Xylocaine 1% Pf 5 ml] 2.1 ml IM X1 Vital Signs Vital signs: Vital Signs Temperature 98.0 F 02/13/25 04:18 Pulse Rate 83 02/13/25 04:18 Respiratory Rate 19 02/13/25 04:18 Blood Pressure 169/95 H 02/13/25 04:18 Pulse Oximetry (%) 98 02/13/25 04:18 Oxygen Delivery Method Room Air 02/13/25 04:18 Abdominal Pain MDM MDM Narrative MDM Narrative:: CT abdomen and pelvis Findings: Diffuse fatty infiltration throughout the liver Hepatomegaly, 24 cm Cholelithiasis No pancreatic or adrenal mass 3 mm nonobstructing left renal calculus Minimal right hydronephrosis minimal right perinephric stranding, no ureteral calculi Aorta normal size No bowel obstruction Normal appendix 3 cm left adnexal cyst No uterine mass Contracted urinary bladder IMPRESSION:: 3 mm nonobstructing left renal calculus Suspicious for right urinary tract infection Labs reviewed. Patient CBC unremarkable BMP shows slightly low potassium of 3.1. Patient's ALT is slightly elevated at 52. AST is 34 lipase is 30 and alk phos is 84. Patient is UA shows positive leukocyte esterase WBCs are 3 but patient does have RBCs in urine. CT shows renal calculus and likely UTI. Will treat patient for UTI. Will give patient a dose of Rocephin here. Patient was given a dose of Toradol earlier and feels better but still complaining of pain. Will treat patient with [place] and send patient home with ibuprofen. Patient told to drink plenty of fluids. Patient is to follow-up with primary provider in 1 to 2 days. [place] to the emergency room symptoms change or worsen. I did tell patient that liver function was slightly abnormal. Patient states she does drink alcohol. Patient verbalized understanding feels comfortable plan of care. Dragon dictation: Although this document has been carefully reviewed, there may still be some phonetic and other typographical errors. These errors are purely grammatical due to imperfections in the software program and should not be construed in any way to compromise the substance of the patient's medical care during this visit. Patient data External records reviewed:: [facility] previous records Clinical information provided by:: patient Social determinants that could affect healthcare access:: none Patient has the following chronic illnesses:: None How is presenting disease/condition affected by chronic disease/condition?: no chronic disease Evaluation data The following diagnostics were reviewed and interpreted by me:: lab results and radiology exam(s) Lab and/or radiology exams considered but not ordered:: None Interpretation Summary: See note Medications / Prescriptions Medications or Prescriptions considered but not ordered:: None Medication administrations:: Medication Administration History Discontinued Medications Hydrocodone Bitart/Acetaminophen (Hydrocodone/Apap 5/325 Tablet) 2 tab PO X1 ONE Stop: 02/13/25 08:03 Last Admin: 02/13/25 08:19 Dose: 2 tab Documented By: GM Ceftriaxone Sodium 1,000 mg/ (Lidocaine HCl 2.1 ml) 0 mg IM X1 ONE Stop: 02/13/25 08:03 Last Admin: 02/13/25 08:20 Dose: 1,000 mg Documented By: GM Ketorolac Tromethamine (Ketorolac Inj 60 Mg/2 Ml Vial) 60 mg IM X1 ONE Stop: 02/13/25 04:25 Last Admin: 02/13/25 04:38 Dose: 60 mg Documented By: SR Metoclopramide HCl (Metoclopramide 5 Mg Tablet) 10 mg PO X1 ONE Stop: 02/13/25 08:03 Last Admin: 02/13/25 08:19 Dose: 10 mg Documented By: GM Ondansetron HCl (Ondansetron Odt 4 Mg Tabrap) 4 mg PO X1 ONE; Protocol Stop: 02/13/25 04:25 Last Admin: 02/13/25 04:37 Dose: 4 mg Documented By: SR see mar Consultations Consultation(s) initiated? (list below): No Diagnosis Differential diagnosis abdominal pain: abdominal pain, acute appendicitis, calculus of kidney, constipation and small bowel obstruction Most likely diagnosis given after review of the tests above:: Kidney stone Admission Indicated Admission indicated?: not indicated Admission Request Was there a request for admission?: No Disposition Plan Disposition Plan: Discharge Discharge Attestation Discharge Attestation: The patient and all family members were given an opportunity to ask questions and understood the discharge instructions. Discharge instructions specifically effects, indications for sooner follow up or return to the emergency department, and the expected course of current diagnosis. Patient condition: Stable Discharge Plan Plan Patient Disposition: HOME (Self Care) Patient condition on transfer: Stable Prescriptions/Referrals Prescriptions/Med Rec: New ibuprofen 800 mg tablet 800 mg PO Q6H PRN (Reason: pain) Qty: 20 0RF No Action acetaminophen 650 mg tablet extended release 650 mg PO Q8H PRN (Reason: fever or pain) Qty: 30 0RF Rx Instructions: swallow whole; do not crush, chew, break, dissolve, cut, or open cyclobenzaprine 10 mg tablet 10 mg PO Q8H PRN (Reason: muscle spasm / pain) Qty: 14 0RF meloxicam [Mobic] 15 mg tablet 15 mg PO QDAY Qty: 10 0RF albuterol sulfate [Ventolin HFA] 90 mcg/actuation HFA aerosol inhaler 2 puff inhalation Q6H PRN (Reason: shortness of breath or wheezing) Qty: 6.7 0RF acetaminophen 500 mg capsule 500 mg PO Q6H PRN (Reason: pain) Qty: 30 0RF benzonatate 100 mg capsule 100 mg PO BID Qty: 20 0RF prednisone 20 mg tablet See Taper PO QDAY Qty: 10 0RF Taper: Prednisone Taper 20 mg DAILY for 2 Days and 0 Hour 10 mg DAILY for 2 Days and 0 Hour 5 mg DAILY for 7 Days and 0 Hour albuterol sulfate 90 mcg/actuation aerosol powdr breath activated 2 inh inhalation Q6H PRN (Reason: shortness of breath) Qty: 1 0RF Referrals: Kirit Chiang MD [Primary Care Provider, Family Practice] - In 1 week Problem List Clinical Impression: Kidney calculus, UTI (urinary tract infection), Acute flank pain, Elevated liver function tests Patient/Caregiver Discharge Instructions Discharge Activity: activity as tolerated Education Materials: ED Hematuria, ED CYSTITIS Female Adult, ED Kidney Stone w/ Colic Additional Instructions: ct abdomen and pelvis: Findings: Diffuse fatty infiltration throughout the liver Hepatomegaly, 24 cm Cholelithiasis No pancreatic or adrenal mass 3 mm nonobstructing left renal calculus Minimal right hydronephrosis minimal right perinephric stranding, no ureteral calculi Aorta normal size No bowel obstruction Normal appendix 3 cm left adnexal cyst No uterine mass Contracted urinary bladder IMPRESSION:: 3 mm nonobstructing left renal calculus Suspicious for right urinary tract infection Follow up with primary provider in 1-2 days. Come back to ED if symptoms change or worsen Print Language: [place] Stand Alone Forms: Brittany Award Info., Work/School Release, Patient Portal Info Letter PA/[employer]ER Supervising Physician PA/[employer] T[employer]ER Supervising Physician: roly
[2025-02-13] MEDS: METOCLOPRAMIDE 5 MG TABLET 10 MG PO (08:19)
[2025-02-13] MEDS: HYDROcodone/APAP 5/325 TABLET 2 TAB PO (08:19)
== END 2025-02-13 08:27 | disposition home or self-care (01) ==
PROVIDERS: Physician Assistant; Emergency Provider Emergency Medicine; PCP Family Medicine
DX: N39.0 Urinary tract infection, site not specified (principal); N20.0 Calculus of kidney; E87.6 Hypokalemia; R79.89 Other specified abnormal findings of blood chemistry
CPT/HCPCS: 36415; 74176; 80053; 81001; 81025; 83690; 85025; 96372; 99283; J0696; J1885; J3490; Q0162; A9270